=== PATIENT | male | born 1995 | race Caucasian/White ===

== ENCOUNTER 2021-10-16 21:36 | Emergency (ER) | payer SELFPAY ==
[~2021-10-16] VITALS: Ht 175.3 cm; Wt 81.0 kg
[2021-10-16 22:02] VITALS: BP 139/87
[2021-10-16] MEDS ORDERED: LIDOCAINE HCL/PF 1% 10 MG/ML 5ML VIAL INFIL ONE (22:30)
[2021-10-16] MEDS ORDERED: TETANUS, DIPHTHERIA, PERTUSSIS VAC/PF 0.5ML (>10YR OLD) IM ONE (22:30)
[2021-10-16] MEDS ORDERED: BACITRACIN ZINC OINT UDPKT TOP ONE (22:30)
[2021-10-16] MEDS ORDERED: ACETAMINOPHEN WITH CODEINE 300/30MG TABLET PO ONE (22:30)
[2021-10-16] MEDS ORDERED: BO1 TP (22:59)
== END 2021-10-16 23:17 | disposition home or self-care (01) ==
LOC: ER 21:36
DX: S61.213A Laceration without foreign body of left middle finger without damage to nail, initial encounter (principal); W26.0XXA Contact with knife, initial encounter; Y93.89 Activity, other specified; Y92.9 Unspecified place or not applicable
CPT/HCPCS: 12002; 99283; J3490

== ENCOUNTER 2021-10-18 11:28 | Emergency (ER) | payer OTHER ==
[~2021-10-18] VITALS: Ht 175.3 cm; Wt 80.0 kg
[~2021-10-18 11:28] MED LIST: BO1 TP
[2021-10-18 11:47] VITALS: BP 135/87
== END 2021-10-18 13:13 | disposition home or self-care (01) ==
LOC: ER 11:28
DX: Z48.00 Encounter for change or removal of nonsurgical wound dressing (principal)
CPT/HCPCS: 99281

== ENCOUNTER 2021-10-24 10:46 | Emergency (ER) | payer OTHER ==
[~2021-10-24] VITALS: Ht 165.1 cm; Wt 68.0 kg
[2021-10-24 11:20] VITALS: BP 139/69
== END 2021-10-24 11:39 | disposition home or self-care (01) ==
LOC: ER 10:46
DX: Z48.02 Encounter for removal of sutures (principal)
CPT/HCPCS: 99281